=== PATIENT | female | born 1995 | race Caucasian/White ===

== ENCOUNTER 2021-12-12 15:08 | Inpatient (IN) | payer MEDICAID ==
[2021-12-12] MEDS ORDERED: LIDOCAINE (2%) 20 MG/1 ML VIAL 20 ML MDV INFILTRATI ONE (17:31)
[2021-12-12] MEDS ORDERED: ONDANSETRON 4 MG/2 ML INJ IV PRN (17:31)
[2021-12-12] MEDS ORDERED: OXYTOCIN 10 UNIT/1 ML INJ IM PRN (17:31)
[2021-12-12] MEDS ORDERED: NalbUPHINE 10 MG/1 ML INJ IV PRN (17:31)
[2021-12-12] MEDS ORDERED: TERBUTALINE 1 MG/1 ML INJ SUB-Q PRN (17:31)
[2021-12-12] MEDS ORDERED: miSOPROStol 200 MCG TAB PR PRN (17:31)
[2021-12-12] MEDS ORDERED: METHYLERGONOVINE MALEATE 0.2 MG/ML VIAL IM PRN (17:31)
[2021-12-12] MEDS ORDERED: CARBOPROST TROMETHAMINE 250 MCG/1 ML INJ IM PRN (18:00)
[2021-12-12] MEDS ORDERED: fentaNYL 100 MCG/2 ML INJ IV PRN (18:00)
[2021-12-12] MEDS ORDERED: PENICILLIN G POTASSIUM 5 MIL.UNITS in SODIUM CHLORIDE 0.9% 50 ML IV ONE (18:00)
[2021-12-12] MEDS ORDERED: ePHEDrine SULFATE 50 MG/1 ML INJ IV PRN (18:00)
[2021-12-12] MEDS ORDERED: ACETAMINOPHEN 325 MG TAB PO PRN (18:00)
[2021-12-12] MEDS ORDERED: LOPERAMIDE 2 MG CAP PO PRN (18:00)
[2021-12-12] MEDS ORDERED: PROMETHAZINE 25 MG TAB PO PRN (18:00)
[2021-12-12] MEDS ORDERED: OXYTOCIN DRIP 30 UNITS/500 ML BAG IV SCH (18:00)
--- NOTE | 2021-12-12 18:01 | History and Physical Report ---
History of Present Illness Date of examination: 12/12/21 Chief complaint: scheduled induction History of present illness: at 38.2wk by LMP c/w U/S. Pt here for scheduled induction. 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 Pt has been taking labetalol 200mg bid and took her last dose this morning, pt also has been taking metformin and states that her sugars are controlled. She also admits to taking valtrex daily. Pt has movement, denies vag bleed or feeling ctx. PT also denies headache. Pt admits to LOF x2days but denies gush of fluid. care at [facility]. Past History Past Medical History: other (Anemia, Chronic HTN, Gest DM, HSVII) Past Surgical History: no surgical history NUTRITION HELPER History: gonorrhea (tx this preg) Social history: no significant social history - Obstetrical History Expected Date of Delivery: 12/24/21 Actual Gestation: 38 Week(s) 2 Day(s) : 1 Number of Living Children: 0 Medications and Allergies Allergies Allergy/AdvReac Type Severity Reaction Status Date / Time No Known Allergies Allergy Unverified 12/12/21 15:43 Home Medications Medication Instructions Recorded Confirmed Last Taken Type Labetalol 200mg TAB PO BID 12/12/21 12/12/21 09:00 History Active Meds: Active Medications Acetaminophen (Acetaminophen 325 Mg Tab) 650 mg PO Q4H PRN PRN Reason: Pain, Mild (1-3) Carboprost Tromethamine (Carboprost Tromethamine 250 Mcg/1 Ml Inj) 250 mcg IM ONCE PRN PRN Reason: Uterine Bleeding Ephedrine Sulfate (Ephedrine Sulfate 50 Mg/1 Ml Inj) 10 mg IV Q2M PRN PRN Reason: Hypotension Fentanyl (Fentanyl 100 Mcg/2 Ml Inj) 100 mcg IV Q2H PRN PRN Reason: Pain,Severe (7-10) LABOR PAIN Lactated Ringer's (Lactated Ringers) 1,000 mls @ 125 mls/hr IV DIRECT MIN Oxytocin/Sodium Chloride (Pitocin/Ns 30 Unit/500ml) 30 units in 500 mls @ 40 mls/hr IV TITR MIN; Protocol Penicillin G Potassium 5 mil. (units/ Sodium Chloride) 50 mls @ 100 mls/hr IV ONCE ONE; Protocol Stop: 12/12/21 18:00 Lidocaine (Lidocaine (2%) 20 Mg/1 Ml Vial 20 Ml Mdv) 20 ml INFILTRATI ONCE ONE Stop: 12/12/21 17:32 Loperamide HCl (Loperamide 2 Mg Cap) 2 mg PO ONCE PRN PRN Reason: give with Hemabate Methylergonovine Maleate (Methylergonovine Maleate 0.2 Mg/Ml Vial) 0.2 mg IM ONCE PRN PRN Reason: Uterine Bleeding Mineral Oil (Mineral Oil 30 Ml Oral Liqd) 30 ml PO QHS PRN PRN Reason: Constipation Misoprostol (Misoprostol 200 Mcg Tab) 800 mcg ME ONCE PRN PRN Reason: Uterine Bleeding Misoprostol (Misoprostol 25 Mcg Tab) 25 mcg PO Q4H MIN Stop: 12/13/21 06:01 Nalbuphine HCl (Nalbuphine 10 Mg/1 Ml Inj) 10 mg IV Q2H PRN PRN Reason: Pain, Moderate (4-6) Ondansetron HCl (Ondansetron 4 Mg/2 Ml Inj) 4 mg IV Q8H PRN PRN Reason: Nausea And Vomiting Oxytocin (Oxytocin 10 Unit/1 Ml Inj) 10 unit IM ONCE PRN PRN Reason: Uterine Bleeding Promethazine HCl (Promethazine 25 Mg Tab) 25 mg PO Q6H PRN PRN Reason: Nausea And Vomiting Terbutaline Sulfate (Terbutaline 1 Mg/1 Ml Inj) 0.25 mg SUB-Q ONCE PRN PRN Reason: Hyperstimulation/Hypertonicity Review of Systems All systems: negative (no complaints) - Vital Signs Vital signs: Vital Signs Pulse BP 113 H 126/87 12/12/21 16:26 12/12/21 16:26 Temp Pulse Resp BP Pulse Ox 106 H 139/92 94 12/12/21 17:54 12/12/21 17:48 12/12/21 17:54 - Physical Exam Breasts: Positive: deferred Cardiovascular: Regular rate Lungs: Positive: Normal air movement Abdomen: Positive: soft Genitourinary (Female): Positive: normal external genitalia Vulva: both: normal (no herpetic lesions) Vagina: Positive: normal moisture Uterus: Positive: enlarged (large baby) - Obstetrical FHR: category 1 Uterine Contraction Monitor Mode: External Cervical Dilatation: 1.5 Cervical Effacement Percentage: 30 station: -2 Uterine Contraction Pattern: Absent Results Result Diagrams: 12/12/21 17:29 12/12/21 15:16 All other labs normal. Assessment and Plan Term IUP here for induction of labor due to chronic HTN on meds with signs of preeclampsia without severe features, Gest DM on metformin; Morbid obesity 1. Admit to labor and delivery 2. Cytotec induction, unable to place mcwilliams bulb with pt screaming prior to pelvic exam, needing her mother to face time to reduce anxiety 3. Discuss labor over the next 1-3days and the process and how to push when complete 4. Hold metformin and monitor accucheck every 4hrs in latent labor; will check hgb A1c with pih labs 5. U/S for LGA and the need to know EFW estimate less than 10lbs vs alternate route of delivery with c/section if >10lbs 6. Continue valtrex med suppression with no active lesions 7. GBS+ and ROM plus on back order per charge nurse. Will check SOPHIA and start PCN for GBS coverage Plan of care discussed, all questions encouraged and answered. Hopeful for vaginal delivery
[2021-12-12 18:12] LABS: Basophils % (Auto) 0.3 % (0.0-1.8); Hematocrit 30.7 % (30.3-42.9); Hemoglobin 10.1 gm/dl (10.1-14.3); Lymphocytes # (Auto) 2.4 K/mm3 (1.2-5.4); Lymphocytes % (Auto) 22.4 % (13.4-35.0); Mean Corpuscular HGB Conc 33 % (30-34); Monocytes # (Auto) 0.9 K/mm3 (0.0-0.8); Monocytes % (Auto) 8.6 % (0.0-7.3); Platelet Count 204 K/mm3 (140-440); Red Blood Count 4.63 M/mm3 (3.65-5.03); Red Cell Distribution Width 19.7 % (13.2-15.2)
[2021-12-12 18:32] LABS: Uric Acid 6.7 mg/dL (3.5-7.6)
[2021-12-12 18:33] LABS: Alanine Aminotransferase 17 units/L (7-56); Albumin 3.8 g/dL (3.9-5); Blood Urea Nitrogen 10 mg/dL (7-17); Calcium 9.8 mg/dL (8.4-10.2); Hemolysis Index 22
[2021-12-12 18:43] LABS: BUN/Creatinine Ratio 17
[2021-12-12 18:45] LABS: Mean Corpuscular Volume 66 fl (79-97)
[2021-12-12] MEDS: miSOPROStol 25 MCG TAB PO SCH ×2 (18:45→23:55)
[2021-12-12] MEDS: LACTATED RINGERS 1,000 ML IV SCH (18:49)
[2021-12-12] MEDS: valACYclovir 500 MG TAB PO SCH (19:48)
--- NOTE | 2021-12-12 21:28 | Ultrasound Report ---
ULTRASOUND OBSTETRIC INDICATION / CLINICAL INFORMATION: EFW and SOPHIA. Clinical Gestational Age (GA) in weeks, days: 38, 2 TECHNIQUE: Transabdominal. COMPARISON: None available. FINDINGS: Single intrauterine . Biparietal Diameter = 10.0 cm = 41, 1 weeks, days Head Circumference = 35.8 cm = 42, 0 weeks, days Abdominal Circumference = 35.4 cm = 39, 2 weeks, days Femur Length = 7.6 cm = 39, 0 weeks, days Average Ultrasound Age (AUA) = 40, 3 weeks, days Heart Rate: 149 beats per minute. Estimated Weight in grams (if calculated): 3902 Estimated Weight Growth Percentile (if calculated): 93 Position: cephalic. Amniotic Fluid Volume: normal Amniotic Fluid Index (SOPHIA) in cm (if calculated): 12.7. Maternal Adnexa: No significant abnormality. IMPRESSION: 1. Single, living intrauterine with estimated sonographic age of 40, 3 weeks, days. 2. No significant sonographic abnormality. Signer Name: Cholo Gamez DO Signed: 12/12/2021 9:24 PM Workstation Name: [id number]
[2021-12-12] MEDS ORDERED: MINERAL OIL 30 ML ORAL LIQD PO PRN (22:00)
[2021-12-13] MEDS ORDERED: ePHEDrine SULFATE 50 MG/1 ML INJ IV PRN (00:42)
[2021-12-13] MEDS ORDERED: NALOXONE 0.4 MG/1 ML INJ IV PRN (00:42)
--- NOTE | 2021-12-13 00:48 | Anesthesia Consultation ---
Anesthesia Consult and Med Hx Date of service: 12/13/21 - Airway Anesthetic Teeth Evaluation: Good ROM Head & Neck: Adequate Mental/Hyoid Distance: Adequate Mallampati Class: Class II Intubation Access Assessment: Probably Good - Pulmonary Exam CTA: Yes - Cardiac Exam Cardiac Exam: RRR - Pre-Operative Health Status ASA Pre-Surgery Classification: ASA3 Proposed Anesthetic Plan: Epidural - Pulmonary Hx Asthma: No COPD: No Hx Pneumonia: No - Cardiovascular System Hx Hypertension: No - Central Nervous System Hx Seizures: No Hx Psychiatric Problems: No - Endocrine Hx Renal Disease: No Hx End Stage Renal Disease: No Hx Hypothyroidism: No Hx Hyperthyroidism: No - Hematic Hx Anemia: No Hx Sickle Cell Disease: No - Other Systems Hx Alcohol Use: No
--- NOTE | 2021-12-13 00:49 | Progress Note ---
Spinal Anesthesia Block - Spinal Anesthesia Block Start Time: 00:07 Stop Time: 00:28 Performed by:: MARQUIS BLANK Procedure: Epidural Patient is requesting epidural for labor and pain. H&P, labs were reviewed. Patient ID confirmed, all questions and concerns were answered, and consent was signed. Timeout was performed at bedside. Patient in sitting position. Sterile prep and drape was performed. 3ml of 1% lidocaine skin wheal at L3- L4 interspace. 3ml of 1% lidocaine skin wheal at L2-L3 interspace. 17-gauge Tuohy epidural needle was advanced to loss of resistance with saline technique cm. Negative CSF negative blood. Epidural catheter advanced to 15 centimeters. Negative aspiration, test dose 3ml 1.5% Lidocaine with epi - negative. Sterile dressing applied. Patient tolerated procedure.
[2021-12-13] MEDS: fentaNYL-BUPIV 2 MCG/ML-0.125% 200 MCG/100 ML BAG EPIDURAL SCH ×2 (01:20→08:29)
[2021-12-13] MEDS: PENICILLIN G POTASSIUM 2.5 MIL.UNITS in SODIUM CHLORIDE 0.9% 50 ML IV SCH ×2 (02:24→05:58)
[2021-12-13] MEDS: miSOPROStol 25 MCG TAB PO SCH (04:10)
[2021-12-13] MEDS: LACTATED RINGERS 1,000 ML IV SCH (05:56)
[2021-12-13] MEDS ORDERED: SODIUM CHLORIDE 0.9% 1000 ML 1,000 ML VG SCH ×2 (07:15)
--- NOTE | 2021-12-13 07:33 | Event Note ---
Date: 12/13/21 OB Limited= SLIUP. Vertex. EFW= 3902 g. (93rd %-ile) SOPHIA= 12.7 cm. Hence, this is LGA. Status post Cytotec for cervical ripening. Cook's catheter fell out spontaneously. Membranes spontaneously ruptured with thin meconium noted. SVE= 6.5/70%/-2. IUPC and FSE placed. Epidural is in place. Amnioinfusion ordered. Accu-Cheks are within range. Check glucoses every 1 hour as patient is now in active labor. Goal is to keep glucoses below 99. Blood pressures are optimally controlled on current regimen of labetalol 200 mg twice daily.
[2021-12-13] MEDS ORDERED: MINERAL OIL 30 ML ORAL LIQD ONE (09:45)
[2021-12-13] MEDS ORDERED: LIDOCAINE (2%) 20 MG/1 ML VIAL 20 ML MDV INFILTRATI ONE (11:26)
[2021-12-13] MEDS ORDERED: miSOPROStol 200 MCG TAB ONE ×2 (11:43→11:45)
--- NOTE | 2021-12-13 12:21 | Procedure Note ---
OB Delivery Note - Delivery Date of Delivery: 12/13/21 Surgeon: EDE BRICE Estimated blood loss: 500cc - Vaginal Delivery presentation: vertex Delivery position: OA Intrapartum events: meconium, shoulder dystocia Delivery induction: misoprostol (and españa's balloon) Delivery augmentation: pitocin Delivery monitor: external FHT, external uterine, internal FHT, internal uterine Route of delivery: Delivery placenta: spontaneous Delivery cord: 3 umbilical vessels Episiotomy: none Delivery laceration: 1st degree (periurethra), 2nd degree (to right and left inner vag wall and perineum) Delivery repair: chromic Anesthesia: local, epidural Delivery comments: Nurse called stating pt feels pressure and my exam with consistent with nurse and cervix complete. Pt given emotional support by staff and family on the phone and myself on how to push effectively. Discussed operative delivery with vacuum for which pt declined. Multiple repositioning and pt pushed viable male infant, shoulder dystocia relieved with McRobert's, suprapubic pressure by biomass technician and counter clockwise rotation to deliver the body. Infant bulb suctioned immediately and handed to Peds. Umbilical artery gas drawn and given to nurse to send to lab. Spontaneous delivery of intact placenta with 3vessel cord. Multiple lacerations repaired with 2-0 chromic running locked to right and left inner vaginal wall and then to right 1st degree to periurethra and then 2nd degree to perineum. Local anesthetic with lidocaine 1% also used to repair lacerations to the perineum for pt comfort. Bimanual done and uterine atony treated with cytotec 800mcg per rectum. Epidural in progress for delivery and repair. Mom and infant stable. NICU present for delivery with meconium stained fluid. Wt 4080g; - A at 1 minute: 7 at 5 minutes: 8 Gender: Male (wt 4080g; meconium stained fluid)
[2021-12-13] MEDS ORDERED: LIDOCAINE MPF (2%) 20 MG/1 ML VIAL 5 ML ONE (12:44)
[2021-12-13] MEDS: valACYclovir 500 MG TAB PO SCH (13:21)
[2021-12-13] MEDS ORDERED: MINERAL OIL 30 ML ORAL LIQD PO SCH (13:30)
[2021-12-13] MEDS ORDERED: WITCH HAZEL/ GLYCERIN PAD TP PRN (14:39)
[2021-12-13] MEDS ORDERED: HYDROCORTISONE 25 MG RECTAL SUPP PR PRN (14:39)
[2021-12-13] MEDS ORDERED: LANOLIN/ZINC/DIMETHICONE (LANSINOH) 7 GM TP PRN (14:39)
[2021-12-13] MEDS ORDERED: PROMETHAZINE 25 MG TAB PO PRN (14:39)
[2021-12-13] MEDS ORDERED: BENZOCAINE/MENTHOL 20/0.5% TOP SPRAY 56 GM TP PRN (14:39)
[2021-12-13] MEDS ORDERED: ONDANSETRON 4 MG/2 ML INJ IV PRN (14:39)
[2021-12-13] MEDS ORDERED: ACETAMINOPHEN 325 MG TAB PO PRN (14:39)
[2021-12-13] MEDS ORDERED: miSOPROStol 100 MCG TAB PR PRN (14:39)
[2021-12-13] MEDS ORDERED: MAGNESIUM HYDROXIDE (MOM) ORAL LIQD UDC PO PRN (14:39)
[2021-12-13] MEDS ORDERED: PROMETHAZINE 25 MG RECT SUPP PR PRN (14:39)
[2021-12-13] MEDS ORDERED: diphenhydrAMINE 25 MG CAP PO PRN (14:39)
[2021-12-13] MEDS: oxyCODONE /ACETAMINOPHEN 5-325MG TAB PO PRN ×2 (15:30→23:59)
[2021-12-13] MEDS: IBUPROFEN 800 MG TAB PO SCH (17:01)
--- NOTE | 2021-12-13 20:05 | Post Anesthesia Evaluation ---
- Post Anesthesia Evaluation Patient Participated: Yes Airway Patent: Yes Stable Respiratory Function: Yes Nausea/Vomiting: No Temp > 96.8F: Yes Pain Manageable: Yes Adequeate Hydration: Yes Anesthesia Complications: No Block Receding Appropriately: Yes
[2021-12-13] MEDS: DOCUSATE SODIUM 100 MG CAP PO SCH (21:55)
[2021-12-14] MEDS: IBUPROFEN 800 MG TAB PO SCH ×4 (00:34→18:29)
[2021-12-14 04:33] LABS: Hematocrit 27.4 % (30.3-42.9); Hemoglobin 8.4 gm/dl (10.1-14.3); Mean Corpuscular HGB Conc 31 % (30-34); Platelet Count 185 K/mm3 (140-440); Red Blood Count 4.01 M/mm3 (3.65-5.03)
[2021-12-14 04:37] LABS: Mean Corpuscular Volume 68 fl (79-97)
[2021-12-14] MEDS: PRENATAL VIT27-FE FUMARATE-FOLIC ACID VIT TAB PO SCH (10:59)
[2021-12-14] MEDS: oxyCODONE /ACETAMINOPHEN 5-325MG TAB PO PRN ×2 (10:59→20:10)
[2021-12-14] MEDS: valACYclovir 500 MG TAB PO SCH (10:59)
[2021-12-14] MEDS: DOCUSATE SODIUM 100 MG CAP PO SCH ×2 (10:59→21:49)
--- NOTE | 2021-12-14 12:59 | Progress Note ---
Assessment and Plan A: PP Day #1 HTN GDM Asymptomatic Anemia P: Follow Routine Orders Continue Labetalol 200mg PO BID GDM Diet Accuchecks 2 hours after meal Continue PO FeSO4 as ordered Subjective - Subjective Date of service: 12/14/21 Patient reports: appetite normal, voiding normally, pain well controlled, flatus, ambulating normally, other (Denies HAs, visual changes, N&V, and epigastic pain) : in NICU, bottle feeding Objective - Vital Signs Latest vital signs: Vital Signs Temp Pulse Resp BP Pulse Ox Pulse Ox 12/14/21 12:09 97.7 F 104 H 28 H 122/69 91 12/14/21 08:15 98.4 F 83 20 134/70 94 12/14/21 07:56 99 12/14/21 05:33 20 12/13/21 23:59 20 12/13/21 23:46 98.6 F 99 H 18 130/76 97 12/13/21 21:55 90 133/66 12/13/21 20:36 98.5 F 101 H 20 141/80 96 12/13/21 19:55 98 12/13/21 16:08 98.7 F 109 H 145/71 96 96 12/13/21 13:44 108 H 94 12/13/21 13:42 111 H 148/88 95 12/13/21 13:38 106 H 94 12/13/21 13:37 110 H 96 12/13/21 13:32 97 H 95 12/13/21 13:31 100 H 87 12/13/21 13:27 99 H 136/66 96 12/13/21 13:24 116 H 94 12/13/21 13:22 112 H 97 12/13/21 13:17 105 H 94 12/13/21 13:15 104 H 94 12/13/21 13:12 109 H 94 12/13/21 13:11 140/76 12/13/21 13:07 108 H 95 12/13/21 13:02 65 97 12/13/21 12:57 70 96 Intake and Output 12/13/21 12/14/21 12/14/21 22:59 06:59 14:59 Intake Total 100 480 360 Output Total 700 Balance 100 -220 360 Intake: IV 100 ceFAZolin 2 GM In NaCl 0. 100 9% 100 ml @ 200 mls/hr IV Q8H [facility] Rx#:[id number] Oral 360 Intake, Free Water 480 Output: Urine 700 Void 700 Other: Total, Intake Amount 360 Total, Output Amount 700 # Voids Void 1 1 - Exam Breasts: Present: normal Cardiovascular: Present: Regular rate Lungs: Present: Clear to auscultation, Normal air movement Abdomen: Present: normal appearance, soft, normal bowel sounds Uterus: Present: normal, firm, fundal height below umbilicus Extremities: Present: normal - Labs Labs: Abnormal lab results 12/14/21 Range/Units 04:06 WBC 14.1 H (4.5-11.0) K/mm3 Hgb 8.4 L (10.1-14.3) gm/dl Hct 27.4 L (30.3-42.9) % MCV 68 L (79-97) fl MCH 21 L (28-32) pg RDW 20.0 H (13.2-15.2) %
[2021-12-14] MEDS: FERROUS SULFATE 325 MG TAB PO SCH ×2 (13:03→21:49)
[2021-12-14] MEDS: ASCORBIC ACID 500 MG TAB PO SCH ×2 (13:03→21:49)
[2021-12-15] MEDS: IBUPROFEN 800 MG TAB PO SCH (06:04)
[2021-12-15] MEDS: FERROUS SULFATE 325 MG TAB PO SCH ×2 (09:05→22:25)
[2021-12-15] MEDS: valACYclovir 500 MG TAB PO SCH ×2 (09:07→22:24)
[2021-12-15] MEDS: ASCORBIC ACID 500 MG TAB PO SCH ×2 (09:07→22:25)
[2021-12-15] MEDS: PRENATAL VIT27-FE FUMARATE-FOLIC ACID VIT TAB PO SCH (09:07)
[2021-12-15] MEDS: DOCUSATE SODIUM 100 MG CAP PO SCH ×2 (09:07→22:26)
[2021-12-15] MEDS: oxyCODONE /ACETAMINOPHEN 5-325MG TAB PO PRN ×3 (09:08→22:25)
--- NOTE | 2021-12-15 13:08 | Progress Note ---
Assessment and Plan PPD#2 with bilateral edema and asymptomatic anemia, and now with active herpetic lesion 1. Valtrex med bid now 2. will give iron supplement and vit C 3. repeat CBC and cmp today 4. offered lasix x1 dose and pt declines because she doesn't want to void and get a lot Emotional support given. Will discharge pt home tomorrow as she continues to heal Subjective Date of service: 12/15/21 Principal diagnosis: PPD#2 Interval history: Pt c/o legs swelling bilaterally and she had difficulty getting up out of bed today. Vag bleed less than a period and pain controlled with meds. Pt states that baby in the nursery with low blood sugar and she is bottle feeding only. Pt denies headache. Pt voids without any burning. Pt does not want to go home today Objective - Constitutional Vitals: Vital Signs - 12hr 12/15/21 12/15/21 12/15/21 03:06 06:04 07:45 Temperature 98.1 F Pulse Rate 98 H Respiratory 20 20 Rate Blood Pressure 117/58 Blood Pressure [Left] O2 Sat by Pulse 96 Oximetry O2 Sat by Pulse 93 Oximetry [ Bilateral] 12/15/21 07:56 Temperature 98.0 F Pulse Rate 99 H Respiratory 22 Rate Blood Pressure Blood Pressure 149/73 [Left] O2 Sat by Pulse 93 Oximetry O2 Sat by Pulse Oximetry [ Bilateral] General appearance: Present: mild distress (slow to repositioning in bed) - Neck Neck: normal ROM - Respiratory Respiratory effort: normal - Breasts Breasts: deferred - Cardiovascular Rhythm: regular Extremity abnormal: edema (trace edema to upper thigh and legs bilateral) - Genitourinary Female genitourinary: other (Fundus firm and non-tender, Perineum with active herpetic lesion on mons pubis; Vulvar bilaterally without swelling) - Integumentary Integumentary: warm, dry - Neurologic Neurologic: moves all extremities - Psychiatric Psychiatric: cooperative - Labs CBC & Chem 7: 12/14/21 04:06 12/12/21 15:16 Labs: Abnormal lab results 12/14/21 12/14/21 Range/Units 13:58 18:39 POC Glucose 119 H 128 H (70-105) mg/dL Medications & Allergies - Medications Allergies/Adverse Reactions: Allergies No Known Allergies Allergy (Unverified 12/12/21 15:43) Home Medications: Home Medications Medication Instructions Recorded Confirmed Last Taken Type Labetalol 200mg TAB 200 mg PO BID 12/12/21 12/14/21 Unknown History metFORMIN [Glucophage] 1 tab PO BID 12/14/21 12/14/21 Unknown History Active Medications: Generic Name Dose Route Start Last Admin Trade Name Freq PRN Reason Stop Dose Admin Acetaminophen 650 mg 12/13/21 14:39 Acetaminophen 325 Mg Tab PO Q4H PRN Pain MILD(1-3)/Fever >100.5/LAMB Ascorbic Acid 500 mg 12/14/21 11:11 12/15/21 09:07 Ascorbic Acid 500 Mg Tab PO 500 mg BID MIN Administration Benzocaine/Menthol 1 spray 12/13/21 14:39 12/13/21 17:05 Benzocaine/Menthol 20/0.5% Top [place] 56 Gm TP 1 spray PRN PRN Administration Episiotomy Pain Bisacodyl 10 mg 12/13/21 14:39 Bisacodyl 10 Mg Rect Supp NM BID PRN Constipation Carboprost Tromethamine 250 mcg 12/12/21 18:00 Carboprost Tromethamine 250 Mcg/1 Ml Inj IM ONCE PRN Uterine Bleeding Diphenhydramine HCl 25 mg 12/13/21 14:39 Diphenhydramine 25 Mg Cap PO Q6H PRN Itching Docusate Sodium 100 mg 12/13/21 22:00 12/15/21 09:07 Docusate Sodium 100 Mg Cap PO 100 mg BID MIN Administration Ferrous Sulfate 325 mg 12/14/21 11:30 12/15/21 09:05 Ferrous Sulfate 325 Mg Tab PO 325 mg BID MIN Administration Hydrocortisone Acetate 25 mg 12/13/21 14:39 Hydrocortisone 25 Mg Rectal Supp NM BID PRN Hemorrhoids Lactated Ringer's 1,000 mls @ 125 mls/hr 12/12/21 18:00 12/13/21 05:56 Lactated Ringers IV 125 mls/hr DIRECT MIN Administration Ibuprofen 800 mg 12/13/21 16:00 12/15/21 06:04 Ibuprofen 800 Mg Tab PO 800 mg Q6H MIN Administration Labetalol HCl 200 mg 12/12/21 22:00 12/15/21 09:07 Labetalol 200 Mg Tab PO 200 mg BID MIN Administration Magnesium Hydroxide 30 ml 12/13/21 14:39 Magnesium Hydroxide (Mom) Oral Liqd Udc PO HS PRN Constipation Misoprostol 800 mcg 12/13/21 14:39 Misoprostol 100 Mcg Tab NM ONCE PRN Uterine Bleeding Multi-Ingredient Ointment 1 applic 12/13/21 14:39 Lanolin/Zinc/Dimethicone (Lansinoh) 7 Gm TP PRN PRN Sore Nipples Multivitamins/Iron/Calcium 1 each 12/14/21 10:00 12/15/21 09:07 [id number] Fumarate-Folic Acid Vit Tab PO 1 each QDAY MIN Administration Ondansetron HCl 4 mg 12/13/21 14:39 Ondansetron 4 Mg/2 Ml Inj IV Q8H PRN Nausea And Vomiting Oxycodone/Acetaminophen 2 tab 12/13/21 14:39 12/15/21 09:08 Oxycodone /Acetaminophen 5-325mg Tab PO 2 tab Q4H PRN Administration Pain, Moderate (4-6) Promethazine HCl 25 mg 12/13/21 14:39 Promethazine 25 Mg Rect Supp NM Q6H PRN Nausea And Vomiting Promethazine HCl 25 mg 12/13/21 14:39 Promethazine 25 Mg Tab PO Q6H PRN Nausea And Vomiting Sodium Chloride 10 ml 12/13/21 14:39 Sodium Chloride 0.9% 10 Ml Flush Syringe IV PRN MIN Valacyclovir HCl 1,000 mg 12/12/21 19:00 12/15/21 09:07 Valacyclovir 500 Mg Tab PO 1,000 mg QDAY MIN Administration Witch Anna/Glycerin 1 each 12/13/21 14:39 12/13/21 17:05 Witch Anna/ Glycerin Pad TP 1 each PRN PRN Administration Hemorrhoid/cleansing/soothing
[2021-12-15 15:47] LABS: Basophils # (Auto) 0.1 K/mm3 (0.0-0.1); Basophils % (Auto) 0.7 % (0.0-1.8); Eosinophils # (Auto) 0.1 K/mm3 (0.0-0.4); Eosinophils % (Auto) 0.8 % (0.0-4.3); Hematocrit 27.5 % (30.3-42.9); Hemoglobin 8.5 gm/dl (10.1-14.3); Lymphocytes # (Auto) 1.9 K/mm3 (1.2-5.4); Lymphocytes % (Auto) 16.9 % (13.4-35.0); Mean Corpuscular HGB Conc 31 % (30-34); Monocytes # (Auto) 0.9 K/mm3 (0.0-0.8); Monocytes % (Auto) 7.5 % (0.0-7.3); Platelet Count 204 K/mm3 (140-440); Red Blood Count 4.05 M/mm3 (3.65-5.03); Red Cell Distribution Width 19.8 % (13.2-15.2)
[2021-12-15 15:53] LABS: Mean Corpuscular Volume 68 fl (79-97)
[2021-12-15 16:06] LABS: Alanine Aminotransferase 14 units/L (7-56); Albumin 3.1 g/dL (3.9-5); Blood Urea Nitrogen 6 mg/dL (7-17); Calcium 9.1 mg/dL (8.4-10.2); Hemolysis Index 5
[2021-12-15 16:09] LABS: BUN/Creatinine Ratio 10
[2021-12-15] MEDS ORDERED: NIFEdipine XL 60 MG TAB PO SCH (18:00)
[2021-12-16] MEDS: oxyCODONE /ACETAMINOPHEN 5-325MG TAB PO PRN (03:00)
--- NOTE | 2021-12-16 09:38 | Progress Note ---
Assessment and Plan PPD#3 doing well and BP wnl 1. Discharge home today and follow in office in 1wk. PIH precaution given. All questions encouraged and answered Subjective Date of service: 12/16/21 Principal diagnosis: PPD#3 Interval history: pt states she feels much better after walking around today. Vag bleed less than a period. pt is bottle feeding baby in NICU. Objective - Constitutional Vitals: Vital Signs - 12hr 12/15/21 12/15/21 12/15/21 22:00 22:25 22:26 Temperature Pulse Rate 114 H 114 H Respiratory 18 18 Rate Blood Pressure 130/80 Blood Pressure 130/80 [Left] O2 Sat by Pulse Oximetry 12/16/21 12/16/21 12/16/21 00:30 03:00 04:50 Temperature 98.7 F Pulse Rate 108 H 87 Respiratory 18 18 Rate Blood Pressure Blood Pressure 125/62 112/64 [Left] O2 Sat by Pulse 95 Oximetry 12/16/21 07:33 Temperature 98.3 F Pulse Rate 97 H Respiratory 24 Rate Blood Pressure 134/85 Blood Pressure [Left] O2 Sat by Pulse 96 Oximetry General appearance: Present: no acute distress - Neck Neck: normal ROM - Respiratory Respiratory effort: normal - Breasts Breasts: deferred - Cardiovascular Rhythm: regular Extremities: No edema - Gastrointestinal General gastrointestinal: Present: soft, non-tender - Genitourinary Female genitourinary: other (Fundus firm, 2cm below umbilicus. non-tender) - Integumentary Integumentary: warm, dry - Neurologic Neurologic: moves all extremities - Psychiatric Psychiatric: cooperative - Labs CBC & Chem 7: 12/15/21 15:01 12/15/21 15:01 Labs: Abnormal lab results 12/15/21 12/15/21 Range/Units 15:01 15:01 WBC 11.4 H (4.5-11.0) K/mm3 Hgb 8.5 L (10.1-14.3) gm/dl Hct 27.5 L (30.3-42.9) % MCV 68 L (79-97) fl MCH 21 L (28-32) pg RDW 19.8 H (13.2-15.2) % [place] % (Auto) 7.5 H (0.0-7.3) % [place] # (Auto) 0.9 H (0.0-0.8) K/mm3 Seg Neutrophils % 74.1 H (40.0-70.0) % Seg Neutrophils # 8.4 H (1.8-7.7) K/mm3 Carbon Dioxide 21 L (22-30) mmol/L BUN 6 L (7-17) mg/dL Alkaline Phosphatase 130 H (35-129) units/L Albumin 3.1 L (3.9-5) g/dL Medications & Allergies - Medications Allergies/Adverse Reactions: Allergies No Known Allergies Allergy (Unverified 12/12/21 15:43) Home Medications: Home Medications Medication Instructions Recorded Confirmed Last Taken Type Labetalol 200mg TAB 200 mg PO BID 12/12/21 12/14/21 Unknown History metFORMIN [Glucophage] 1 tab PO BID 12/14/21 12/14/21 Unknown History Ibuprofen [Motrin] 800 mg PO Q8HR PRN 21 Days #40 12/16/21 Unknown Rx tablet Labetalol HCl [Labetalol 300mg TAB] 300 mg PO BID 30 Days #60 12/16/21 Unknown Rx Active Medications: Generic Name Dose Route Start Last Admin Trade Name Freq PRN Reason Stop Dose Admin Acetaminophen 650 mg 12/13/21 14:39 Acetaminophen 325 Mg Tab PO Q4H PRN Pain MILD(1-3)/Fever >100.5/LAMB Ascorbic Acid 500 mg 12/14/21 11:11 12/15/21 22:25 Ascorbic Acid 500 Mg Tab PO 500 mg BID MIN Administration Benzocaine/Menthol 1 spray 12/13/21 14:39 12/13/21 17:05 Benzocaine/Menthol 20/0.5% Top [place] 56 Gm TP 1 spray PRN PRN Administration Episiotomy Pain Bisacodyl 10 mg 12/13/21 14:39 Bisacodyl 10 Mg Rect Supp [place] BID PRN Constipation Carboprost Tromethamine 250 mcg 12/12/21 18:00 Carboprost Tromethamine 250 Mcg/1 Ml Inj IM ONCE PRN Uterine Bleeding Diphenhydramine HCl 25 mg 12/13/21 14:39 Diphenhydramine 25 Mg Cap PO Q6H PRN Itching Docusate Sodium 100 mg 12/13/21 22:00 12/15/21 22:26 Docusate Sodium 100 Mg Cap PO 100 mg BID MIN Administration Ferrous Sulfate 325 mg 12/14/21 11:30 12/15/21 22:25 Ferrous Sulfate 325 Mg Tab PO 325 mg BID MIN Administration Hydrocortisone Acetate 25 mg 12/13/21 14:39 Hydrocortisone 25 Mg Rectal Supp [place] BID PRN Hemorrhoids Lactated Ringer's 1,000 mls @ 125 mls/hr 12/12/21 18:00 12/13/21 05:56 Lactated Ringers IV 125 mls/hr DIRECT MIN Administration Ibuprofen 800 mg 12/13/21 16:00 12/15/21 06:04 Ibuprofen 800 Mg Tab PO 800 mg Q6H MIN Administration Labetalol HCl 200 mg 12/12/21 22:00 12/15/21 22:26 Labetalol 200 Mg Tab PO 200 mg BID MIN Administration Labetalol HCl 100 mg 12/15/21 22:00 12/15/21 22:26 Labetalol 100 Mg Tab PO 100 mg BID MIN Administration Magnesium Hydroxide 30 ml 12/13/21 14:39 Magnesium Hydroxide (Mom) Oral Liqd Udc PO HS PRN Constipation Misoprostol 800 mcg 12/13/21 14:39 Misoprostol 100 Mcg Tab [place] ONCE PRN Uterine Bleeding Multi-Ingredient Ointment 1 applic 12/13/21 14:39 Lanolin/Zinc/Dimethicone (Lansinoh) 7 Gm TP PRN PRN Sore Nipples Multivitamins/Iron/Calcium 1 each 12/14/21 10:00 12/15/21 09:07 [id number] Fumarate-Folic Acid Vit Tab PO 1 each QDAY [facility] Administration Nifedipine 60 mg 12/15/21 18:00 Nifedipine Xl 60 Mg Tab PO QDAY [facility] Ondansetron HCl 4 mg 12/13/21 14:39 Ondansetron 4 Mg/2 Ml Inj IV Q8H PRN Nausea And Vomiting Oxycodone/Acetaminophen 2 tab 12/13/21 14:39 12/16/21 03:00 Oxycodone /Acetaminophen 5-325mg Tab PO 2 tab Q4H PRN Administration Pain, Moderate (4-6) Promethazine HCl 25 mg 12/13/21 14:39 Promethazine 25 Mg Rect Supp [place] Q6H PRN Nausea And Vomiting Promethazine HCl 25 mg 12/13/21 14:39 Promethazine 25 Mg Tab PO Q6H PRN Nausea And Vomiting Sodium Chloride 10 ml 12/13/21 14:39 Sodium Chloride 0.9% 10 Ml Flush Syringe IV PRN MIN Valacyclovir HCl 1,000 mg 12/15/21 13:10 12/15/21 22:24 Valacyclovir 500 Mg Tab PO 1,000 mg BID MIN Administration Witch Anna/Glycerin 1 each 12/13/21 14:39 12/13/21 17:05 Witch Anna/ Glycerin Pad TP 1 each PRN PRN Administration Hemorrhoid/cleansing/soothing
[2021-12-16] MEDS: IBUPROFEN 800 MG TAB PO SCH (09:54)
[2021-12-16] MEDS: FERROUS SULFATE 325 MG TAB PO SCH (09:56)
[2021-12-16] MEDS: PRENATAL VIT27-FE FUMARATE-FOLIC ACID VIT TAB PO SCH (09:56)
[2021-12-16] MEDS: valACYclovir 500 MG TAB PO SCH (09:56)
[2021-12-16] MEDS: ASCORBIC ACID 500 MG TAB PO SCH (09:56)
[2021-12-16] MEDS: DOCUSATE SODIUM 100 MG CAP PO SCH (09:56)
[2021-12-16 11:58] VITALS: BP 140/86
--- NOTE | 2021-12-16 19:26 | Discharge Summary ---
Providers - Providers Date of Admission: 12/12/21 15:09 Date of discharge: 12/16/21 Attending physician: EDE BRICE Primary care physician: EDE BRICE Hospitalization Reason for admission: IUP at term, other (Morbid obesity, chronic HTN, Gest Diabetes, H/O herpes without lesions) Delivery: Episiotomy: none Laceration: vaginal side wall, 1st degree, 2nd degree complications: none Discharge diagnosis: IUP at term delivered [place] baby: male Hospital course: Term induction for chronic HTN, gest DM and morbid obesity who had successful vaginal delivery and course with pt c/o bilateral thigh swelling and pain that improved with movement. BP increased and labetalol increased from 200mg bid to 300mg bid with good effect. Pt counseled on PIH precaution and BP check in office in 1wk Condition at discharge: Good Disposition: 01 HOME / SELF CARE / HOMELESS Plan - Discharge Medications Prescriptions: Labetalol HCl [Labetalol 300mg TAB] 300 mg PO BID 30 Days #60 Ibuprofen [Motrin] 800 mg PO Q8HR PRN 21 Days #40 tablet PRN Reason: Pain, Moderate (4-6) - Provider Discharge Summary Additional instructions: [] Smoking cessation referral if applicable(refer to patient education folder for contact #) [] Refer to [facility] Center Booklet Call your doctor immediately for: * Fever > 100.5 * Heavy vaginal bleeding ( >1 pad per hour) * Severe persistent headache * Shortness of breath * Reddened, hot, painful area to leg or breast * Drainage or odor from incision. * Keep incision clean and dry at all times and follow doctor's instructions regarding bathing/showering - Follow up plan Follow up: EDE BRICE MD [Primary Care Provider] - 7 Days Forms: [facility] Discharge Summary
== END 2021-12-16 11:45 | disposition home or self-care (01) | DRG 774 ==
LOC: TRG 15:08 → EDBD 15:09 → LD 15:09 → TRG 18:18 → OB 12-13 16:00
PROVIDERS: ADMIT Obstetrics & Gynecology; ATTEND Obstetrics & Gynecology
PROC: 10E0XZZ Delivery of Products of Conception, External Approach (ICD-10-PCS; principal; 2021-12-13)
PROC: 0KQM0ZZ Repair Perineum Muscle, Open Approach (ICD-10-PCS; 2021-12-13)
PROC: 3E0R3BZ Introduction of Anesthetic Agent into Spinal Canal, Percutaneous Approach (ICD-10-PCS; 2021-12-13)
PROC: 00HU33Z Insertion of Infusion Device into Spinal Canal, Percutaneous Approach (ICD-10-PCS; 2021-12-13)
DX: O14.94 Unspecified pre-eclampsia, complicating childbirth (principal); O98.32 Other infections with a predominantly sexual mode of transmission complicating childbirth; Z3A.38 38 weeks gestation of pregnancy; B00.89 Other herpesviral infection; Z20.822 Contact with and (suspected) exposure to COVID-19; O16.4 Unspecified maternal hypertension, complicating childbirth; O99.824 Streptococcus B carrier state complicating childbirth; O99.214 Obesity complicating childbirth; E66.01 Morbid (severe) obesity due to excess calories; O77.0 Labor and delivery complicated by meconium in amniotic fluid; O66.0 Obstructed labor due to shoulder dystocia; O70.1 Second degree perineal laceration during delivery; O24.429 Gestational diabetes mellitus in childbirth, unspecified control; Z37.0 Single live birth; O90.81 Anemia of the puerperium; A60.00 Herpesviral infection of urogenital system, unspecified
CPT/HCPCS: 36415; 59025; 76816; 80053; 82962; 83036; 83615; 84550; 85025; 85027; 86592; 86850; 86900; 86901; 88307; 96360; 96365; G0378; J3490; J0690; J2540; J2590; J7030; J7120; U0003